=== PATIENT | male | born 1955 | race Caucasian/White ===

== ENCOUNTER 2018-07-08 12:03 | Emergency (ER) | payer OTHER ==
[2018-07-08 14:02] LABS: Bilirubin Negative (Negative); Blood, Urine Trace (Negative); Clarity Clear (Clear); Glucose, Urine (Dipstick) Negative (Negative); Leukocyte Negative (Negative); Nitrite Negative (Negative); Protein, Urine (Dipstick) Negative (Neg-Trace); Urobilinogen 0.2 mg/dL (0.2-1.0)
[2018-07-08 14:06] LABS: RBC/HPF 0-3 HPF (0-3); Squamous Epithelial 0-3 HPF (0-3); WBC/HPF 0-3 HPF (0-3)
[2018-07-08 14:09] LABS: Specific Gravity, Urine Less/Equal 1.005 (1.005-1.030)
[2018-07-08] MEDS ORDERED: Ibuprofen 200 MG TAB ONE (14:17)
--- NOTE | 2018-07-08 14:49 | CT ---
CT PELVIS WITHOUT CONTRAST: HISTORY: Spontaneous onset of left lower proximal hip pain. Seems worse than yesterday. COMPARISON: None. FINDINGS: The visualized alimentary canal and abdominal mesentery is unremarkable. Nonspecific calcification i n the left hemipelvis. Moderately distended urinary bladder. Encourage spontaneous voiding. Fat in the sacral foramina and presacral fat is preserved. There is degenerative change with mild subchondral cyst formation involving both femurs. Never-the-l ess, joint space height is preserved. Acetabuli are intact. Obturator rings are intact. Iliac wing s are intact. Evidence of a bony pelvic fracture. There is degenerative disk disease with vacuum disk phenomenon and osteophyte formation at what is pr esumed to be the L4-L5 level. There is grade 1 retrolisthesis of L4 upon L5. Evaluation is limited by technique. There does appear to be a laminectomy defect on the left side, at L4-L5. Based on the images provided, no high-grade central canal stenosis. Moderate right foraminal narrowing at L4-L5. IMPRESSION: 1. Mildly prominent urinary bladder. Encourage spontaneous voiding. 2. Postoperative and degenerative changes involving the lumbar spine, at L4-L5, as described above. 3. Degenerative changes in both hips with evidence of subchondral cyst formation. POS: [facility]
== END 2018-07-08 14:16 | disposition home or self-care (01) ==
LOC: BURERS 12:03
DX: M25.552 Pain in left hip (principal); K21.9 Gastro-esophageal reflux disease without esophagitis; I10 Essential (primary) hypertension; J45.909 Unspecified asthma, uncomplicated; F17.220 Nicotine dependence, chewing tobacco, uncomplicated; Z79.82 Long term (current) use of aspirin
CPT/HCPCS: 72192; 81003; 81015

== ENCOUNTER 2018-09-27 15:40 | Emergency (ER) | payer OTHER, SELFPAY ==
[2018-09-27] MEDS ORDERED: Adacel (T-DAP) 0.5 ML SYRINGE ONE (16:03)
[2018-09-27] MEDS ORDERED: Ibuprofen 800 MG TAB ONE (16:03)
--- NOTE | 2018-09-27 16:46 | RAD ---
Radiograph left hand 3 views: 09/27/2018 HISTORY: 63-year-old male status post acute traumatic injury to left hand FINDINGS: This is actually a 5 view study. Soft tissue swelling at the dorsum over third MCP joint. Chronic sub luxation at second and third MCP joints with joint space narrowing, especially third MCP. No fracture or dislocation identified. High-grade DJD at first CMC joint. Prominent ulna plus. IMPRESSION: 1. No acute fracture. 2. Soft tissue swelling dorsum around third metacarpophalangeal joint. 3. Severe osteoarthrosis first carpometacarpal joint. 4 ulnar positive variance. 5. Joint space narrowing of second and third metacarpophalangeal joints.
== END 2018-09-27 16:50 | disposition home or self-care (01) ==
LOC: BURERS 15:40
DX: M19.042 Primary osteoarthritis, left hand (principal); F17.220 Nicotine dependence, chewing tobacco, uncomplicated; W19.XXXA Unspecified fall, initial encounter
CPT/HCPCS: 29125; 90471; 90715

== ENCOUNTER 2018-10-15 19:03 | Emergency (ER) | payer OTHER ==
[2018-10-15] MEDS ORDERED: predniSONE 20 MG TAB ONE (19:37)
--- NOTE | 2018-10-15 22:51 | RAD ---
LEFT HAND THREE VIEWS: 10/15/18 Soft tissue swelling is seen over the dorsum of the hand. No acute fracture was seen. Degenerative ch anges are present in the first carpometacarpal joint. The fingers appear intact. The basic carpal rel ationships seem normal. IMPRESSION: Swelling. POS: HOME
== END 2018-10-15 19:38 | disposition home or self-care (01) ==
LOC: BURERS 19:03
DX: M79.89 Other specified soft tissue disorders (principal); K21.9 Gastro-esophageal reflux disease without esophagitis; I10 Essential (primary) hypertension; J45.909 Unspecified asthma, uncomplicated; F17.220 Nicotine dependence, chewing tobacco, uncomplicated; Z79.1 Long term (current) use of non-steroidal anti-inflammatories (NSAID)
CPT/HCPCS: J7512

== ENCOUNTER 2018-10-25 03:39 | Emergency (ER) | payer OTHER ==
[2018-10-25] MEDS ORDERED: Metoprolol Tartrate 5 MG/5 ML VIAL ONE ×2 (04:26→05:13)
[2018-10-25] MEDS ORDERED: Aspirin Chewable 81 MG TAB ONE (04:26)
[2018-10-25] MEDS ORDERED: Nitroglycerin 50 MG/250 ML BOT 250 ML ONE (04:26)
[2018-10-25 04:51] LABS: #Basophils 0.1 thou/uL (0.0-0.2); #Lymphocytes 1.1 thou/uL (1.20-3.40); #Neutrophils 9.9 thou/uL (1.40-6.50); %Basophils 0.5 % (0.0-1.0); %Eosinophils 0.1 % (0.0-10.0); %Lymphocytes 8.8 % (21.0-51.0); %Monocytes 8.2 % (0.0-10.0); %Neutrophils 82.5 % (42.0-75.0); Mean Corpuscular HGB CONC 33.8 g/dL (32.0-36.0); Mean Corpuscular Hemoglobin 32.2 pg (27.0-31.0); Mean Corpuscular Volume 95.3 fL (78.0-98.0); Platelet Count 245 thou/uL (130-400); RBC Distribution Width 13.2 % (11.5-14.5); Red Blood Cell (RBC) Count 4.67 mill/uL (4.70-6.10)
[2018-10-25 05:04] LABS: Acetaminophen Less than 6.0 mcg/mL (10.0-30.0); Alcohol Less than 10 mg/dL (Less than 10); Salicylate Less than 8.0 mg/dL (15.0-30.0)
[2018-10-25 05:06] LABS: ALT (SGPT) 306 U/L (8-55); AST (SGOT) 439 U/L (5-34); Albumin 4.2 g/dL (3.4-4.8); Alkaline Phosphatase 244 U/L (40-150); Anion Gap 17 mmol/L (10-20); BUN (Urea Nitrogen) 15 mg/dL (8.4-25.7); Calc. Creatinine Clearance 0 mL/min (70-130); Calcium 11.2 mg/dL (7.8-10.44); Carbon Dioxide 28 mmol/L (23-31); Chloride 97 mmol/L (98-107); Estimated GFR-MDRD 61; Globulin 3.4 g/dL (2.4-3.5); Glucose 97 mg/dL (80-115); Lipase 14 U/L (8-78); Potassium 3.6 mmol/L (3.5-5.1); Protein, Total 7.6 g/dL (5.8-8.1); Sodium 138 mmol/L (136-145)
[2018-10-25 05:07] LABS: Bilirubin Large (Negative); Blood, Urine Negative (Negative); Clarity Hazy (Clear); Glucose, Urine (Dipstick) Negative (Negative); Leukocyte Negative (Negative); Nitrite Negative (Negative); Protein, Urine (Dipstick) 100 mg/dL (Neg-Trace)
[2018-10-25] MEDS ORDERED: Lorazepam 2 MG/ML VIAL ONE (05:13)
[2018-10-25] MEDS ORDERED: Pantoprazole 40 MG VIAL ONE (05:13)
[2018-10-25 05:15] LABS: RBC/HPF 0-3 HPF (0-3); Squamous Epithelial 0-3 HPF (0-3)
[2018-10-25 05:16] LABS: Bacteria/HPF Rare-Few HPF (None Seen); Mucous/LPF 1+ LPF (<2+)
[2018-10-25 05:17] LABS: Amphetamine Not Detected (NotDetected); Barbiturates Screen Not Detected (NotDetected); Benzodiazepine Screen Not Detected (NotDetected); Cocaine Metabolite Screen Not Detected (NotDetected); Medtox Control Line Valid? VALID (VALID); Methadone Not Detected (NotDetected); Methamphetamine Not Detected (NotDetected); Opiate Screen Not Detected (NotDetected); Oxycodone Screen Not Detected (NotDetected); Phencyclidine (PCP) Not Detected (NotDetected); THC/Cannabinoid Screen Not Detected (NotDetected); Tricyclic Screen Not Detected (NotDetected)
--- NOTE | 2018-10-25 10:45 | RAD ---
PORTABLE CHEST: DATE: 10/25/2018. FINDINGS: An AP portable film at 0442 is compared with a 09/07/2018 study. The heart is normal in size and the lungs are clear. No infiltrate or effusion was seen. There is n o vascular congestion or edema. The mediastinum was unremarkable. IMPRESSION: No acute thoracic findings. POS: HOME
== END 2018-10-25 05:45 | disposition short-term general hospital (02) ==
LOC: BURERS 03:39
DX: K75.9 Inflammatory liver disease, unspecified (principal); R07.9 Chest pain, unspecified; I10 Essential (primary) hypertension; F17.210 Nicotine dependence, cigarettes, uncomplicated; K21.9 Gastro-esophageal reflux disease without esophagitis
CPT/HCPCS: 71045; 80053; 80306; 80307; 81003; 81015; 83690; 84484; 85025; 93005; 94760; 96365; 96375; C9113; J2060

== ENCOUNTER 2018-11-14 15:32 | Emergency (ER) | payer OTHER ==
[2018-11-14 16:21] LABS: Acetaminophen Less than 6.0 mcg/mL (10.0-30.0); Alcohol 323 mg/dL (Less than 10); Salicylate Less than 8.0 mg/dL (15.0-30.0)
[2018-11-14 16:23] LABS: ALT (SGPT) 33 U/L (8-55); AST (SGOT) 92 U/L (5-34); Albumin 3.8 g/dL (3.4-4.8); Alkaline Phosphatase 139 U/L (40-150); Anion Gap 14 mmol/L (10-20); BUN (Urea Nitrogen) 8 mg/dL (8.4-25.7); Bilirubin, Total 0.5 mg/dL (0.2-1.2); Calc. Creatinine Clearance 0 mL/min (70-130); Carbon Dioxide 22 mmol/L (23-31); Chloride 107 mmol/L (98-107); Estimated GFR-MDRD 85; Globulin 3.5 g/dL (2.4-3.5); Glucose 93 mg/dL (80-115); Potassium 3.9 mmol/L (3.5-5.1); Protein, Total 7.3 g/dL (5.8-8.1); Sodium 139 mmol/L (136-145)
[2018-11-14 16:28] LABS: #Basophils 0.1 thou/uL (0.0-0.2); #Lymphocytes 2.4 thou/uL (1.20-3.40); #Monocytes 0.5 thou/uL (0.11-0.59); #Neutrophils 3.2 thou/uL (1.40-6.50); %Basophils 1.3 % (0.0-1.0); %Eosinophils 0.3 % (0.0-10.0); %Lymphocytes 38.3 % (21.0-51.0); %Monocytes 8.2 % (0.0-10.0); %Neutrophils 51.9 % (42.0-75.0); Hemoglobin 12.7 g/dL (14.0-18.0); Mean Corpuscular HGB CONC 33.4 g/dL (32.0-36.0); Mean Corpuscular Hemoglobin 31.4 pg (27.0-31.0); Mean Platelet Volume 5.1 fL (7.4-10.4); Platelet Count 245 thou/uL (130-400); RBC Distribution Width 12.7 % (11.5-14.5); Red Blood Cell (RBC) Count 4.04 mill/uL (4.70-6.10); White Blood Cell (WBC) Count 6.1 thou/uL (4.8-10.8)
[2018-11-14 16:48] LABS: Amphetamine Not Detected (NotDetected); Barbiturates Screen Not Detected (NotDetected); Benzodiazepine Screen Not Detected (NotDetected); Cocaine Metabolite Screen Not Detected (NotDetected); Medtox Control Line Valid? VALID (VALID); Methadone Not Detected (NotDetected); Methamphetamine Not Detected (NotDetected); Opiate Screen Not Detected (NotDetected); Oxycodone Screen Not Detected (NotDetected); Phencyclidine (PCP) Not Detected (NotDetected); THC/Cannabinoid Screen Not Detected (NotDetected); Tricyclic Screen Not Detected (NotDetected)
[2018-11-14] MEDS ORDERED: Ibuprofen 800 MG TAB ONE (21:30)
== END 2018-11-15 10:59 | disposition home or self-care (01) ==
LOC: BURERS 15:32
DX: R45.851 Suicidal ideations (principal); F10.129 Alcohol abuse with intoxication, unspecified; Y90.1 Blood alcohol level of 20-39 mg/100 ml; K21.9 Gastro-esophageal reflux disease without esophagitis; I10 Essential (primary) hypertension; F17.220 Nicotine dependence, chewing tobacco, uncomplicated; Z79.891 Long term (current) use of opiate analgesic
CPT/HCPCS: 36415; 80053; 80306; 80307; 85025; 93005

== ENCOUNTER 2019-08-27 10:46 | Outpatient (CLI) | payer MEDICARE, OTHER ==
--- NOTE | 2019-08-27 18:27 | RAD ---
RIGHT KNEE FOUR VIEWS: 08/27/19 No fracture, dislocation, or joint effusion was seen. The joint space appears normal. There are no si gnificant arthritic changes. The articular surfaces are smooth. There is a hint of some meniscal calc ification, particularly in the medial meniscus. IMPRESSION: Slight meniscal calcification, exam otherwise unremarkable. POS: HOME
== END 2019-08-27 10:47 | disposition home or self-care (01) ==
LOC: BURRAD 10:46
PROVIDERS: ATTEND Family Medicine
DX: M25.561 Pain in right knee (principal); M25.861 Other specified joint disorders, right knee

== ENCOUNTER 2020-05-07 12:52 | Emergency (ER) | payer MEDICARE, MEDICAID ==
[2020-05-07 13:34] LABS: #Basophils 0.1 thou/uL (0.0-0.2); #Lymphocytes 1.5 thou/uL (1.20-3.40); #Monocytes 1.3 thou/uL (0.11-0.59); #Neutrophils 6.6 thou/uL (1.40-6.50); %Basophils 0.9 % (0.0-1.0); %Lymphocytes 15.6 % (21.0-51.0); %Monocytes 13.3 % (0.0-10.0); %Neutrophils 70.1 % (42.0-75.0); Mean Corpuscular HGB CONC 35.7 g/dL (32.0-36.0); Mean Corpuscular Hemoglobin 31.1 pg (27.0-31.0); Mean Corpuscular Volume 87.2 fL (78.0-98.0); Mean Platelet Volume 5.9 fL (7.4-10.4); Platelet Count 205 thou/uL (130-400); RBC Distribution Width 11.4 % (11.5-14.5); Red Blood Cell (RBC) Count 5.13 mill/uL (4.70-6.10); White Blood Cell (WBC) Count 9.4 thou/uL (4.8-10.8)
[2020-05-07 13:48] LABS: ALT (SGPT) 36 U/L (8-55); AST (SGOT) 51 U/L (5-34); Albumin 3.7 g/dL (3.4-4.8); Alkaline Phosphatase 131 U/L (40-110); Anion Gap 22 mmol/L (10-20); BUN (Urea Nitrogen) 8 mg/dL (8.4-25.7); Bilirubin, Total 0.7 mg/dL (0.2-1.2); Calc. Creatinine Clearance 0 mL/min (70-130); Calcium 8.3 mg/dL (7.8-10.44); Carbon Dioxide 25 mmol/L (23-31); Globulin 3.3 g/dL (2.4-3.5); Glucose 89 mg/dL (80-115); Lipase 17 U/L (8-78)
[2020-05-07 13:50] LABS: Chloride 71 mmol/L (98-107); Potassium 2.9 mmol/L (3.5-5.1); Sodium 115 mmol/L (136-145)
[2020-05-07] MEDS ORDERED: Potassium Chloride 20 MEQ TAB ONE (14:41)
--- NOTE | 2020-05-07 15:22 | CT ---
CT ABDOMEN AND PELVIS WITHOUT CONTRAST: Date: 05-07-2020 Comparison: 01-23-2020 FINDINGS: The liver is generous in size but no more so than before. Some air in the biliary tree is to be expec delbert and is normal in this patient. There has been a prior cholecystectomy. The spleen is normal in si ze. The pancreas itself showed no acute findings, though there is some stranding around the tail. Thi s was present in January, so I am not convinced this is new. If the patient were to have an increased amalase or lipase, the finding would be more meaningful in terms of possible pancreatitis. The kidne ys and aorta were unremarkable as were the adrenal glands. There is no dilation of bowel or gross thickening of bowel. No free air or free fluid was seen. CT of the pelvis shows no pelvic masses, fluid collections, or inflammatory changes. IMPRESSION: 1. Minor streaking around the region of the pancreatic tail and just below the spleen. To some extent this was present in January, so I would tend to discount the finding, unless the patient had symptom s and lab work suggestive of pancreatitis. 2. Mildly generous fatty liver with pneumobilia, unchanged from January. POS: HOME
== END 2020-05-07 15:08 ==
LOC: BURERS 12:52
DX: E87.1 Hypo-osmolality and hyponatremia (principal); E87.6 Hypokalemia; K21.9 Gastro-esophageal reflux disease without esophagitis; I10 Essential (primary) hypertension; F17.220 Nicotine dependence, chewing tobacco, uncomplicated
CPT/HCPCS: 74176; 80053; 82140; 83690; 85025; 96365

== ENCOUNTER 2020-07-16 13:42 | Emergency (ER) | payer MEDICARE, MEDICAID ==
[2020-07-16 14:40] LABS: #Basophils 0.1 thou/uL (0.0-0.2); #Lymphocytes 2.1 thou/uL (1.20-3.40); #Monocytes 0.4 thou/uL (0.11-0.59); #Neutrophils 1.7 thou/uL (1.40-6.50); %Basophils 1.9 % (0.0-1.0); %Eosinophils 0.7 % (0.0-10.0); %Lymphocytes 48.9 % (21.0-51.0); %Monocytes 9.4 % (0.0-10.0); %Neutrophils 39.1 % (42.0-75.0); Hemoglobin 11.6 g/dL (14.0-18.0); Mean Corpuscular HGB CONC 32.2 g/dL (32.0-36.0); Mean Corpuscular Hemoglobin 33.9 pg (27.0-31.0); Mean Platelet Volume 4.5 fL (7.4-10.4); Platelet Count 307 thou/uL (130-400); RBC Distribution Width 16.6 % (11.5-14.5); Red Blood Cell (RBC) Count 3.43 mill/uL (4.70-6.10); White Blood Cell (WBC) Count 4.4 thou/uL (4.8-10.8)
[2020-07-16 14:41] LABS: MDiff Complete? YES
[2020-07-16 14:55] LABS: ALT (SGPT) 44 U/L (8-55); AST (SGOT) 66 U/L (5-34); Albumin 2.9 g/dL (3.4-4.8); Alkaline Phosphatase 119 U/L (40-110); Anion Gap 16 mmol/L (10-20); BUN (Urea Nitrogen) Less than 4 mg/dL (8.4-25.7); Bilirubin, Total 0.2 mg/dL (0.2-1.2); Calc. Creatinine Clearance 0 mL/min (70-130); Carbon Dioxide 20 mmol/L (23-31); Chloride 111 mmol/L (98-107); Globulin 3.1 g/dL (2.4-3.5); Glucose 83 mg/dL (80-115); Potassium 4.5 mmol/L (3.5-5.1); Sodium 142 mmol/L (136-145)
[2020-07-16 16:33] LABS: Bilirubin Negative (Negative); Blood, Urine Negative (Negative); Clarity Clear (Clear); Glucose, Urine (Dipstick) Negative (Negative); Ketone, Urine Negative (Negative); Leukocyte Negative (Negative); Nitrite Negative (Negative); Protein, Urine (Dipstick) Negative (Neg-Trace); Specific Gravity, Urine 1.015 (1.005-1.030); Urobilinogen 0.2 mg/dL (Less than 2)
[2020-07-16] MEDS ORDERED: Enoxaparin Sodium 100 MG/ML SYRINGE ONE (18:28)
[2020-07-16] MEDS ORDERED: Aspirin Chewable 81 MG TAB ONE (18:28)
== END 2020-07-16 19:19 | disposition short-term general hospital (02) ==
LOC: BURERS 13:42
DX: R06.00 Dyspnea, unspecified (principal); F10.129 Alcohol abuse with intoxication, unspecified; K21.9 Gastro-esophageal reflux disease without esophagitis; I10 Essential (primary) hypertension; K74.60 Unspecified cirrhosis of liver; F17.220 Nicotine dependence, chewing tobacco, uncomplicated; Z79.899 Other long term (current) drug therapy
CPT/HCPCS: 36415; 71045; 80053; 80307; 81003; 83880; 84484; 85025; 85379; 93005; 94760; 96372; J1650

== ENCOUNTER 2020-08-07 13:15 | Emergency (ER) | payer MEDICARE, MEDICAID ==
[~2020-08-07 13:15] MED LIST: Iopamidol 370 76% 100 ML VIAL ONE
[2020-08-07] MEDS ORDERED: Thiamine HCl 200 MG/2 ML VIAL ONE (13:57)
[2020-08-07 14:08] LABS: Hemoglobin 14.4 g/dL (14.0-18.0); Mean Corpuscular HGB CONC 37.5 g/dL (32.0-36.0); Mean Corpuscular Hemoglobin 35.9 pg (27.0-31.0); Mean Corpuscular Volume 95.9 fL (78.0-98.0); Mean Platelet Volume 5.7 fL (7.4-10.4); Platelet Count 346 thou/uL (130-400); RBC Distribution Width 12.8 % (11.5-14.5); Red Blood Cell (RBC) Count 4.01 mill/uL (4.70-6.10); White Blood Cell (WBC) Count 7.8 thou/uL (4.8-10.8)
[2020-08-07 14:21] LABS: ALT (SGPT) 43 U/L (8-55); AST (SGOT) 79 U/L (5-34); Albumin 3.2 g/dL (3.4-4.8); Alkaline Phosphatase 200 U/L (40-110); BUN (Urea Nitrogen) 7 mg/dL (8.4-25.7); Bilirubin, Total 0.6 mg/dL (0.2-1.2); CK (CPK) 78 U/L (30-200); Calc. Creatinine Clearance 0 mL/min (70-130); Carbon Dioxide 28 mmol/L (23-31); Globulin 3.5 g/dL (2.4-3.5); Glucose 91 mg/dL (80-115); Lipase 16 U/L (8-78); Protein, Total 6.7 g/dL (5.8-8.1)
[2020-08-07 14:39] LABS: Potassium 2.5 mmol/L (3.5-5.1); Sodium 112 mmol/L (136-145)
[2020-08-07 14:46] LABS: Lymphocytes 24 % (21-51); MDiff Complete? YES; Monocytes 9 % (0-10); Neutrophil 67 % (42-75); Platelet Morphology Comment Appears Adequate; RBC Morphology Normal
[2020-08-07] MEDS ORDERED: Potassium Chloride 20 MEQ/100 ML PREMIX BAG ONE (14:54)
[2020-08-07 14:59] LABS: Chloride Less than 65 mmol/L (98-107)
[2020-08-07] MEDS ORDERED: Ondansetron PF 4 MG/2 ML Vial ONE (15:23)
[2020-08-07 16:58] LABS: Bilirubin Negative (Negative); Blood, Urine Trace (Negative); Clarity Clear (Clear); Glucose, Urine (Dipstick) Negative (Negative); Ketone, Urine Negative (Negative); Leukocyte Negative (Negative); Nitrite Negative (Negative); Protein, Urine (Dipstick) Negative (Neg-Trace); Urobilinogen 0.2 mg/dL (Less than 2); pH, Urine 5.5 (5.0-9.0)
[2020-08-07 17:12] LABS: Bacteria/HPF None Seen HPF (None Seen); RBC/HPF 0-3 HPF (0-3); Squamous Epithelial 0-3 HPF (0-3); WBC/HPF 0-3 HPF (0-3)
[2020-08-07] MEDS ORDERED: Potassium Chloride 20 MEQ TAB ONE (17:34)
== END 2020-08-07 17:55 | disposition short-term general hospital (02) ==
LOC: BURERS 13:15
DX: E87.1 Hypo-osmolality and hyponatremia (principal); E87.6 Hypokalemia; K21.9 Gastro-esophageal reflux disease without esophagitis; I10 Essential (primary) hypertension; F17.220 Nicotine dependence, chewing tobacco, uncomplicated; Z79.899 Other long term (current) drug therapy
CPT/HCPCS: 70450; 71045; 72125; 74177; 80053; 81003; 81015; 82550; 83690; 83880; 84484; 85025; 93005; 96361; 96365; 96375; J2405; J3411; J3480; Q9967